=== PATIENT | female | born 1950 | race Caucasian/White ===

== ENCOUNTER 2017-10-27 17:04 | Inpatient (IN) | payer MEDICARE, MEDICAID ==
[~2017-10-27] VITALS: Ht 162.6 cm; Wt 71.7 kg
[2017-10-27 18:53] LABS: CHLORIDE 105 mEq/L (98-107)
[2017-10-27 18:59] LABS: AMMONIA 29 uMol/L (<32)
[2017-10-27 19:20] LABS: CLARITY URINE CLEAR (CLEAR); COLOR URINE YELLOW (YELLOW); KETONES URINE NEGATIVE (NEGATIVE); LEUKOCYTE ESTERASE URINE NEGATIVE (NEGATIVE); NITRITE URINE POSITIVE (NEGATIVE); OCCULT BLOOD URINE NEGATIVE (NEGATIVE); PROTEIN URINE NEGATIVE (NEGATIVE); SPECIFIC GRAVITY URINE 1.006 (1.005-1.030); UROBILINOGEN URINE 0.2 E.U./dL (0.2-1.0)
[2017-10-27 19:21] LABS: BASOPHILS % 0.9 % (0.0-2.0); EOSINOPHILS % 0.9 % (0.0-5.0); HEMATOCRIT. 34.9 % (36.0-48.0); HEMOGLOBIN. 11.9 g/dL (12.0-16.0); MEAN CORPUSCULAR HEMOGLOBIN 30.4 pg (28.0-32.0); MEAN CORPUSCULAR VOLUME 89.2 fL (81.0-99.0); MEAN PLATELET VOLUME 10.6 fl (7.4-10.4); MONOCYTES % 7.7 % (2.0-8.0); NEUTROPHILS % 46.5 % (40.0-76.0); PLATELET 193 x1000/uL (130-400); RED BLOOD CELL COUNT 3.91 mill/uL (4.2-5.4); RED CELL DISTRIBUTION WIDTH 13.9 % (11.6-14.6)
[2017-10-27 19:31] LABS: *AMPHETAMINES SCREEN URINE NEGATIVE (NEGATIVE); *BARBITURATES SCREEN URINE NEGATIVE (NEGATIVE); *BENZODIAZEPINES SCREEN URINE NEGATIVE (NEGATIVE); *COCAINE SCREEN URINE NEGATIVE (NEGATIVE); METHADONE URINE SCREEN NEGATIVE (NEGATIVE); OPIATES URINE SCREEN NEGATIVE (NEGATIVE)
[2017-10-27 19:32] LABS: CANNABINOID URINE SCREEN NEGATIVE (NEGATIVE); PHENCYCLIDINE URINE SCREEN NEGATIVE (NEGATIVE)
[2017-10-27] MEDS ORDERED: SITA100T11 MT (23:30)
[2017-10-27] MEDS ORDERED: ATOR20TA65 MT (23:30)
[2017-10-27] MEDS ORDERED: LISI-604 MT (23:30)
[2017-10-27] MEDS ORDERED: METF10004 MT (23:30)
[2017-10-27 23:36] VITALS: BP 165/71
[2017-10-27 23:38] VITALS: BP 165/71
[2017-10-28] MEDS ORDERED: DEXTROSE 50% WATER 50ML SYRINGE IV PRN
[2017-10-28] MEDS ORDERED: HYDRALAZINE HCL 50MG TABLET PO PRN
[2017-10-28] MEDS ORDERED: DIPHENHYDRAMINE 50MG/ML VIAL IV PRN (01:00)
[2017-10-28] MEDS ORDERED: MAGNESIUM/ALUMINUM HYDROXIDE/SIMETHICONE 30ML UDC PO PRN (01:00)
[2017-10-28] MEDS ORDERED: GUAIFENESIN 200MG/10ML SUGAR FREE UDC PO PRN (01:00)
[2017-10-28] MEDS ORDERED: HYDROCODONE/ACETAMINOPHEN 5/325MG TABLET PO PRN (01:00)
[2017-10-28] MEDS ORDERED: IPRATROPIUM/ALBUTEROL 0.5-3(2.5)MG/3ML NEB INH PRN (01:00)
[2017-10-28] MEDS ORDERED: SODIUM CHLORIDE 0.45% 1,000 ML IV SCH (01:00)
[2017-10-28] MEDS ORDERED: CLONIDINE 0.1MG TABLET PO PRN (01:00)
[2017-10-28] MEDS ORDERED: DOCUSATE SODIUM 100MG CAPSULE PO PRN (01:00)
[2017-10-28] MEDS ORDERED: NA PHOS,M-B/NA PHOS,DI-BA ENEMA 118ML PR PRN (01:00)
[2017-10-28] MEDS ORDERED: ONDANSETRON HCL 4MG/2ML INJ IV PRN (01:00)
[2017-10-28] MEDS ORDERED: ACETAMINOPHEN 650MG SUPP PR PRN (01:00)
[2017-10-28] MEDS: SODIUM CHLORIDE 0.9% INJ 3ML FLUSH IVF SCH ×2 (02:01→14:44)
[2017-10-28 04:00] VITALS: BP 143/80
[2017-10-28 07:17] LABS: BASOPHILS % 0.8 % (0.0-2.0); EOSINOPHILS % 0.7 % (0.0-5.0); HEMATOCRIT. 35.2 % (36.0-48.0); LYMPHOCYTES % 30.4 % (20.0-50.0); MEAN CORPUSCULAR HEMOGLOBIN 30.3 pg (28.0-32.0); MEAN CORPUSCULAR VOLUME 88.8 fL (81.0-99.0); MONOCYTES % 7.6 % (2.0-8.0); NEUTROPHILS % 60.5 % (40.0-76.0); PLATELET 249 x1000/uL (130-400); RED BLOOD CELL COUNT 3.97 mill/uL (4.2-5.4)
[2017-10-28] MEDS: BLOOD SUGAR DIAGNOSTIC STRIP TEST SCH ×2 (07:21→12:38)
[2017-10-28] MEDS: INSULIN LISPRO 100 UNITS/ML SUBCUT SCH ×2 (07:21→12:38)
[2017-10-28 07:30] LABS: CHLORIDE 108 mEq/L (98-107)
[2017-10-28 08:00] VITALS: BP 147/75
[2017-10-28] MEDS ORDERED: METFORMIN HCL 500MG TABLET PO SCH (08:10)
[2017-10-28] MEDS ORDERED: MEDICATION NOT ON FORMULARY EA (Sitagliptin Phosphate (Januvia) 1 TAB) MT SCH (09:00)
[2017-10-28] MEDS ORDERED: MEDICATION NOT ON FORMULARY EA (Lisinopril 1 TAB) MT SCH (09:00)
[2017-10-28] MEDS ORDERED: LISINOPRIL 20MG TABLET PO SCH (09:00)
[2017-10-28] MEDS ORDERED: MEDICATION NOT ON FORMULARY EA (Metformin Hcl 1 TAB) MT SCH (09:00)
[2017-10-28] MEDS ORDERED: LINAGLIPTIN 5MG TABLET PO SCH (09:00)
[2017-10-28 12:00] VITALS: BP 154/69
[2017-10-28 16:44] VITALS: BP 141/66
[2017-10-28] MEDS ORDERED: ATORVASTATIN CALCIUM 20MG TABLET PO SCH (21:00)
== END 2017-10-28 17:28 | disposition home or self-care (01) | DRG 93 ==
LOC: ER 18:01 → 7WST 21:49 → EDBEDREQTM 21:55 → ENRESERV 22:20
PROVIDERS: ADMIT Family Medicine; ATTEND Family Medicine
DX: G92 Toxic encephalopathy (principal); E78.5 Hyperlipidemia, unspecified; I10 Essential (primary) hypertension; E11.9 Type 2 diabetes mellitus without complications; K59.00 Constipation, unspecified; T50.905A Adverse effect of unspecified drugs, medicaments and biological substances, initial encounter; Z88.0 Allergy status to penicillin; Y92.89 Other specified places as the place of occurrence of the external cause
CPT/HCPCS: 36415; 70360; 70450; 71045; 80048; 80053; 80305; 80307; 81003; 82140; 82962; 83036; 83605; 83880; 84484; 85025; 93005; 99285

== ENCOUNTER 2021-03-15 13:57 | Emergency (ER) | payer MEDICARE, MEDICAID ==
[~2021-03-15] VITALS: Ht 152.4 cm; Wt 67.0 kg
[~2021-03-15 13:57] MED LIST: ATOR20TA65 MT; LISI20TA31 MT; METF-416 MT; SITA100T11 MT
[2021-03-15 16:57] LABS: BASOPHILS % 1.1 % (0.0-2.0); EOSINOPHILS % 1.2 % (0.0-5.0); HEMATOCRIT. 36.6 % (36.0-48.0); HEMOGLOBIN. 12.3 g/dL (12.0-16.0); MEAN CORPUSCULAR HEMOGLOBIN 29.8 pg (28.0-32.0); MEAN CORPUSCULAR VOLUME 88.6 fL (81.0-99.0); MEAN PLATELET VOLUME 8.5 fl (7.4-10.4); MONOCYTES % 7.7 % (2.0-8.0); PLATELET 245 x1000/uL (130-400); RED BLOOD CELL COUNT 4.14 mill/uL (4.2-5.4); RED CELL DISTRIBUTION WIDTH 13.5 % (11.6-14.6)
[2021-03-15 17:00] LABS: CHLORIDE 104 mEq/L (98-107)
[2021-03-15] MEDS ORDERED: ASPIRIN 325MG EC TABLET PO ONE (18:45)
[2021-03-15 19:15] LABS: CLARITY URINE CLOUDY (CLEAR); COLOR URINE YELLOW (YELLOW); KETONES URINE TRACE (NEGATIVE); LEUKOCYTE ESTERASE URINE 1+ (NEGATIVE); NITRITE URINE POSITIVE (NEGATIVE); OCCULT BLOOD URINE NEGATIVE (NEGATIVE); PH URINE 5.5 (4.5-8.0); PROTEIN URINE NEGATIVE (NEGATIVE); SPECIFIC GRAVITY URINE 1.029 (1.005-1.030); UROBILINOGEN URINE 0.2 E.U./dL (0.2-1.0)
[2021-03-15] MEDS ORDERED: IOHEXOL-300 100 ML BOTTLE ONE (21:37)
[2021-03-15] MEDS ORDERED: CEPH500C2 MT (23:37)
[2021-03-16] VITALS: BP 142/81
== END 2021-03-16 00:11 | disposition home or self-care (01) ==
LOC: ER 13:57 → CANBEDREQ 22:55 → ER 03-16 00:11
DX: K76.0 Fatty (change of) liver, not elsewhere classified (principal); I51.7 Cardiomegaly; N39.0 Urinary tract infection, site not specified; E11.9 Type 2 diabetes mellitus without complications; E78.00 Pure hypercholesterolemia, unspecified; I10 Essential (primary) hypertension; Z88.3 Allergy status to other anti-infective agents; Z87.440 Personal history of urinary (tract) infections
CPT/HCPCS: 36415; 71045; 74177; 76700; 80053; 81003; 83690; 83880; 84484; 85025; 93005; 99285; Q9967